=== PATIENT | female | born 1960 | race Caucasian/White ===

== ENCOUNTER 2017-10-23 11:03 | Emergency (ER) | payer OTHER ==
[~2017-10-23] VITALS: Ht 154.9 cm; Wt 64.1 kg
[2017-10-23 11:12] VITALS: TEMP 36.7; Ht 154.9 cm; Wt 64.1 kg
[2017-10-23 12:27] LABS: BASO % 0.2 %; BASO ABS # 0.02 K/uL (0-0.2); EOS % 0.6 %; EOS ABS # 0.05 K/uL (0-0.5); HEMATOCRIT 38.8 % (37-47); HEMOGLOBIN 13.3 g/dL (12.0-16.0); IG# 0.01 K/uL (0.00-0.02); LYMPH % 20.6 %; LYMPH ABS # 1.82 K/uL (1.2-3.4); MEAN CELL VOLUME 85.1 fL (80-100); MEAN CORPUSCULAR HEMOGLOBIN 29.2 pg (25-34); MEAN CORPUSCULAR HGB CONC 34.3 g/dl (32-36); MONO % 8.8 %; MONO ABS # 0.78 K/uL (0.11-0.59); NEUT % 69.7 %; NEUT ABS # 6.17 K/uL (1.4-6.5); PLATELET COUNT 301 K/uL (130-400); RED CELL DISTRIBUTION WIDTH CV 13.4 % (11.5-14.5); RED CELL DISTRIBUTION WIDTH SD 41.1 fL (36.4-46.3); WHITE BLOOD COUNT 8.85 K/uL (4.8-10.8)
[2017-10-23 12:47] LABS: ALBUMIN 3.9 gm/dl (3.4-5.0); CALCIUM 9.7 mg/dl (8.5-10.1); CREATININE 0.7 mg/dl (0.60-1.20); POTASSIUM 3.9 mmol/L (3.5-5.1)
[2017-10-23 12:49] LABS: TOTAL PROTEIN 7.3 gm/dl (6.4-8.2)
[2017-10-23] MEDS ORDERED: FENTANYL CITRATE INJ 50 MCG/1 ML 2 ML VIAL IV STA (13:13)
[2017-10-23] MEDS ORDERED: KETOROLAC TROMETHAMINE 30 MG/ML VIAL IV STA (13:13)
--- NOTE | 2017-10-23 13:37 | DIAGNOSTIC IMAGING REPORT ---
ABD/PELVIS WITHOUT FOR STONE CLINICAL HISTORY: 57 years-old Female presenting with left low back pain, left flank pain, dark-colored urine. TECHNIQUE: Multidetector CT of the abdomen and pelvis was performed without the use of intravenous contrast. IV contrast: None. A dose lowering technique was used consistent with the principles of ALARA (as low as reasonably achievable). COMPARISON: None. CT DOSE (mGy.cm): The estimated cumulative dose is 498.31 mGy.cm. FINDINGS: Racker Octave Board topogram: Unremarkable. Lung bases: Minimal basilar opacities, likely atelectasis. Normal heart size. No pericardial or pleural effusion. Liver: Normal morphology. Multiple well-defined hypodensities in the liver, indeterminate but likely hepatic cysts or hamartomas. Normal liver density. Biliary: No gross biliary ductal dilatation allowing for noncontrast technique. Normal gallbladder. Pancreas: Normal noncontrast appearance. Spleen: Normal noncontrast appearance. Adrenal glands: Normal noncontrast appearance. Kidneys and ureters: Cluster of nonobstructing right renal calculi at the lower pole, the largest measuring 5 mm. Parenchymal calcification potentially associated with a cystic lesion in the left kidney, incompletely characterized. No hydronephrosis. No ureteral calculi. The ureters are nondilated. Bladder: Normal. No bladder calculi. Pelvic organs: Normal noncontrast appearance. Bowel: Mild stool burden throughout the colon. The appendix is normal. No bowel obstruction. Peritoneal cavity: No free fluid or intraperitoneal gas. Lymph nodes: No gross lymphadenopathy allowing for noncontrast technique. Vasculature: Normal noncontrast appearance. Abdominal wall: Small fat-containing umbilical hernia. Musculoskeletal: Normal. IMPRESSION: 1. Cluster of nonobstructing right renal calculi, the largest measuring 5 mm. No hydronephrosis or ureteral calculi. No evidence to suggest a recently passed calculus. 2. No convincing evidence of acute intra-abdominal pathology. Electronically signed by: Rojelio Frank M.D. 10/23/2017 1:36 PM Dictated Date/Time: 10/23/2017 1:30 PM
--- NOTE | 2017-10-23 15:16 | DIAGNOSTIC IMAGING REPORT ---
TRANSVAG-FEMALE PELVIS CLINICAL HISTORY: 57 years-old Female presenting with llq pain, , last menstrual period 3 months ago, no abnormal bleeding or prior surgery, left-sided pelvic pain. TECHNIQUE: Real-time grayscale and color and spectral Doppler ultrasound imaging of the pelvis was performed first using a transabdominal probe and subsequently transvaginal for better characterization. COMPARISON: CT from earlier the same day. FINDINGS: Uterus: Mildly hypoechoic region at the uterine fundus, possibly a small intramural fibroid. Anteverted. The uterus measures 6.3 x 3.9 x 4.8 cm. Endometrial stripe measures 3 mm in thickness. Endometrium normal-appearing. Cervix normal. Right adnexa: Right ovary contains a dominant follicle. Right ovary measures 2.8 x 2.6 x 2.4 cm. Normal color Doppler flow and arterial and venous waveforms within the ovarian parenchyma. Left adnexa: Left ovary normal. Left ovary measures 2.5 x 1.7 x 2.3 cm. Normal color Doppler flow and arterial and venous waveforms within the ovarian parenchyma. Other: No free fluid. IMPRESSION: 1. No significant abnormality identified within the pelvis. No ovarian torsion. Electronically signed by: Rojelio Frank M.D. 10/23/2017 3:15 PM Dictated Date/Time: 10/23/2017 3:12 PM
[2017-10-23 15:35] VITALS: BP 117/87; PULSE 71; O2SAT 97
--- NOTE | 2017-10-23 15:57 | EMERGENCY ROOM VISIT NOTE ---
History Report prepared by Ranjeet: Maki Peoples Under the Supervision of: Sondra HendersonO. First contact with patient: 12:20 Chief Complaint: FLANK PAIN Stated Complaint: PAIN IN LOWER LEFT SIDE TO BACK AREA History of Present Illness The patient is a 57 year old female who presents to the Emergency Room with complaints of worsening left lower side pain beginning at 3 am this morning. The patient reports her pain now radiates to her left sided back. The patient reports her lower back pain worsens when she takes a deep breath. She notes her pain is slightly relieved when she lays flat. She reports she felt normal last night before she went to bed. She reports a history of bladder infection. The patient reports dark urine. She denies any recent activity or recent travel. Pt denies headache, change in vision, fevers, chest pain, shortness of breath, nausea, vomiting, diarrhea, pain with urination, increased urinary urge, and melena. The patient reports a family history of kidney stones. The patient reports a history of a cyst on her breast. Patient states prior remote history of ovarian cyst. No significant family history of other pathology. Patient denies any recent dyspareunia, abnormal bleeding, or abnormal discharge. No history of STDs. No new sexual partner. Source of History: patient Onset: 3 am Position: other (left side) Quality: other (radiates to back) Timing: worsening Modifying Factors (Worsening): breathing Modifying Factors (Relieving): other (laying flat) Associated Symptoms: + back pain, + urinary symptoms, No headache, No chest pain, No SOB, No nausea, No vomiting, No diarrhea Review of Systems See HPI for pertinent positives & negatives. A total of 10 systems reviewed and were otherwise negative. Past Medical & Surgical Medical Problems: (1) Bladder infection Family History Kidney stones Social History Smoking Status: Never Smoker Alcohol Use: occasionally Drug Use: none Marital Status: single Housing Status: lives with family Occupation Status: employed Current/Historical Medications Scheduled Tamsulosin Hcl (Flomax), 0.4 MG PO DAILY Scheduled PRN Oxycodone/Acetaminophen 5MG/325MG (Percocet 5MG/325MG), 1-2 TABS PO Q6 PRN for Pain Allergies Coded Allergies: No Known Allergies (Verified , 10/23/17) Physical Exam Vital Signs Date Time Temp Pulse Resp B/P (MAP) Pulse Ox O2 Delivery O2 Flow Rate FiO2 10/23/17 15:35 71 17 117/87 97 Room Air 10/23/17 13:45 74 17 99 Room Air 10/23/17 12:39 78 19 143/89 100 Room Air 10/23/17 11:12 36.7 74 18 136/84 100 Room Air Physical Exam GENERAL: alert, well appearing, well nourished, no distress, non-toxic EYE EXAM: normal conjunctiva, PERRL and EOM's grossly intact OROPHARYNX: no exudate, no erythema, lips, buccal mucosa, and tongue normal and mucous membranes are moist NECK: supple, no nuchal rigidity, no adenopathy, non-tender LUNGS: Clear to auscultation. Normal chest wall mechanics HEART: no murmurs, S1 normal and S2 normal ABDOMEN: abdomen soft, non-tender, normo-active bowel sounds, no masses, no rebound or guarding. BACK: Reproducible left lower back pain. Back is symmetrical on inspection and there is no deformity, no midline tenderness, no CVA tenderness. SKIN: no rashes and no bruising UPPER EXTREMITIES: upper extremities are grossly normal. LOWER EXTREMITIES: No pitting edema. NEURO EXAM: Normal sensorium, cranial nerves II-XII grossly intact, normal speech, no gross weakness of arms, no gross weakness of legs. Medical Decision & Procedures ER Provider Diagnostic Interpretation: Radiology results have been interpreted by the radiologist and reviewed by me. ABD/PELVIS WITHOUT FOR STONE FINDINGS: Human Service Coordinator topogram: Unremarkable. Lung bases: Minimal basilar opacities, likely atelectasis. Normal heart size. No pericardial or pleural effusion. Liver: Normal morphology. Multiple well-defined hypodensities in the liver, indeterminate but likely hepatic cysts or hamartomas. Normal liver density. Biliary: No gross biliary ductal dilatation allowing for noncontrast technique. Normal gallbladder. Pancreas: Normal noncontrast appearance. Spleen: Normal noncontrast appearance. Adrenal glands: Normal noncontrast appearance. Kidneys and ureters: Cluster of nonobstructing right renal calculi at the lower pole, the largest measuring 5 mm. Parenchymal calcification potentially associated with a cystic lesion in the left kidney, incompletely characterized. No hydronephrosis. No ureteral calculi. The ureters are nondilated. Bladder: Normal. No bladder calculi. Pelvic organs: Normal noncontrast appearance. Bowel: Mild stool burden throughout the colon. The appendix is normal. No bowel obstruction. Peritoneal cavity: No free fluid or intraperitoneal gas. Lymph nodes: No gross lymphadenopathy allowing for noncontrast technique. Vasculature: Normal noncontrast appearance. Abdominal wall: Small fat-containing umbilical hernia. Musculoskeletal: Normal. IMPRESSION: 1. Cluster of nonobstructing right renal calculi, the largest measuring 5 mm. No hydronephrosis or ureteral calculi. No evidence to suggest a recently passed calculus. 2. No convincing evidence of acute intra-abdominal pathology. Electronically signed by: Rojelio Frank M.D. TRANSVAG-FEMALE PELVIS FINDINGS: Uterus: Mildly hypoechoic region at the uterine fundus, possibly a small intramural fibroid. Anteverted. The uterus measures 6.3 x 3.9 x 4.8 cm. Endometrial stripe measures 3 mm in thickness. Endometrium normal-appearing. Cervix normal. Right adnexa: Right ovary contains a dominant follicle. Right ovary measures 2.8 x 2.6 x 2.4 cm. Normal color Doppler flow and arterial and venous waveforms within the ovarian parenchyma. Left adnexa: Left ovary normal. Left ovary measures 2.5 x 1.7 x 2.3 cm. Normal color Doppler flow and arterial and venous waveforms within the ovarian parenchyma. Other: No free fluid. IMPRESSION: 1. No significant abnormality identified within the pelvis. No ovarian torsion. Electronically signed by: Rojelio Frank M.D. Laboratory Results 10/23/17 12:05 Red Blood Count 4.56, Mean Corpuscular Volume 85.1, Mean Corpuscular Hemoglobin 29.2, Mean Corpuscular Hemoglobin Concent 34.3, Mean Platelet Volume 9.0, Neutrophils (%) (Auto) 69.7, Lymphocytes (%) (Auto) 20.6, Monocytes (%) (Auto) 8.8, Eosinophils (%) (Auto) 0.6, Basophils (%) (Auto) 0.2, Neutrophils # (Auto) 6.17, Lymphocytes # (Auto) 1.82, Monocytes # (Auto) 0.78, Eosinophils # (Auto) 0.05, Basophils # (Auto) 0.02 10/23/17 12:05 Test 10/23/17 11:45 10/23/17 12:05 Urine Color YELLOW Urine Appearance CLEAR (CLEAR) Urine pH 7.0 (4.5-7.5) Urine Specific Cougar 1.020 (1.000-1.030) Urine Protein NEG (NEG) Urine Glucose (UA) NEG (NEG) Urine Ketones NEG (NEG) Urine Occult Blood 3+ (NEG) Urine Nitrite NEG (NEG) Urine Bilirubin NEG (NEG) Urine Urobilinogen NEG (NEG) Urine Leukocyte Esterase TRACE (NEG) Urine WBC (Auto) 1-5 /hpf (0-5) Urine RBC (Auto) >30 /hpf (0-4) Urine Hyaline Casts (Auto) 1-5 /lpf (0-5) Urine Epithelial Cells (Auto) >30 /lpf (0-5) Urine Bacteria (Auto) 1+ (NEG) White Blood Count 8.85 K/uL (4.8-10.8) Red Blood Count 4.56 M/uL (4.2-5.4) Hemoglobin 13.3 g/dL (12.0-16.0) Hematocrit 38.8 % (37-47) Mean Corpuscular Volume 85.1 fL (80-100) Mean Corpuscular Hemoglobin 29.2 pg (25-34) Mean Corpuscular Hemoglobin Concent 34.3 g/dl (32-36) Platelet Count 301 K/uL (130-400) Mean Platelet Volume 9.0 fL (7.4-10.4) Neutrophils (%) (Auto) 69.7 % Lymphocytes (%) (Auto) 20.6 % Monocytes (%) (Auto) 8.8 % Eosinophils (%) (Auto) 0.6 % Basophils (%) (Auto) 0.2 % Neutrophils # (Auto) 6.17 K/uL (1.4-6.5) Lymphocytes # (Auto) 1.82 K/uL (1.2-3.4) Monocytes # (Auto) 0.78 K/uL (0.11-0.59) Eosinophils # (Auto) 0.05 K/uL (0-0.5) Basophils # (Auto) 0.02 K/uL (0-0.2) RDW Standard Deviation 41.1 fL (36.4-46.3) RDW Coefficient of Variation 13.4 % (11.5-14.5) Immature Granulocyte % (Auto) 0.1 % Immature Granulocyte # (Auto) 0.01 K/uL (0.00-0.02) Anion Gap 4.0 mmol/L (3-11) Est Creatinine Clear Calc Drug Dose 76.9 ml/min Estimated GFR () 112.3 Estimated GFR (Non- 96.9 BUN/Creatinine Ratio 19.3 (10-20) Calcium Level 9.7 mg/dl (8.5-10.1) Total Bilirubin 0.5 mg/dl (0.2-1) Aspartate Amino Transf (AST/SGOT) 12 U/L (15-37) Alanine Aminotransferase (ALT/SGPT) 23 U/L (12-78) Alkaline Phosphatase 65 U/L (45-117) Total Protein 7.3 gm/dl (6.4-8.2) Albumin 3.9 gm/dl (3.4-5.0) Globulin 3.4 gm/dl (2.5-4.0) Albumin/Globulin Ratio 1.1 (0.9-2) Lipase 104 U/L (73-393) Human Chorionic Gonadotropin, Qual NEG (NEG) Date/Time Source Procedure Growth Status 10/23/17 11:45 Urine , Clean Catch Urine Culture - Final MORE THAN THREE TYPES OF ORGANISMS GA... Complete Laboratory results per my review. Medications Administered Medications (Trade) Dose Ordered Sig/Montez Route Start Time Stop Time Status Last Admin Dose Admin Fentanyl Citrate (Fentanyl Inj) 50 mcg NOW STAT IV 10/23/17 13:13 10/23/17 13:14 DC 10/23/17 13:35 50 MCG Ketorolac Tromethamine (Toradol Inj) 30 mg NOW STAT IV 10/23/17 13:13 10/23/17 13:14 DC 10/23/17 13:34 30 MG ED Course 1227: The patient was evaluated in room C8. A complete history and physical exam was performed. 1313: Ordered Toradol Inj 30 mg IV, Fentanyl Inj 50 mcg IV. 1356: I updated the patient on her test results. She reports relief of her pain. 1540: The patient is resting comfortably. 1600: Upon reevaluation, the patient is feeling better. I discussed the findings and the treatment plan with the patient. She verbalizes agreement and understanding. The patient was discharged home. Medical Decision Differential diagnosis: Etiologies such as renal colic, appendicitis, diverticulitis, mesenteric ischemia, aortic pathology, infections, inflammatory bowel disease, PUD, biliary pathology, UTI, as well as others were entertained. Patient most likely with renal colic as nephrolithiasis noted on imaging and hematuria found also. No discrete ureterolithiasis noted on patient's CT. No evidence of renal dysfunction, no evidence of UTI. I do not suspect infected stone. No evidence of bacteremia/sepsis. No other acute GI or vascular pathology noted. Patient with prior history of ovarian cysts, however pelvic ultrasound unremarkable. I do not suspect torsion, TOA, PID. Patient well- appearing here, improved after pain medication. No vomiting, afebrile. Patient hemodynamically stable throughout. Discussed with patient symptoms to watch and return for, straining urine, hydration, possible need for urology follow-up if symptoms persist, follow-up with PCP in the interim, she verbalized understanding was agreeable with plan. Patient cautioned on use of stronger pain medication including common side effects such as constipation as well as avoidance of driving while taking them. Patient discharged in good condition and well-appearing at time of discharge. Boyfriend driving the patient home. Medication Reconcilliation Current Medication List: was personally reviewed by me Blood Pressure Screening Patient's blood pressure: Normal blood pressure Impression Primary Impression: Left flank pain Additional Impression: Hematuria Scribe Attestation The scribe's documentation has been prepared under my direction and personally reviewed by me in its entirety. I confirm that the note above accurately reflects all work, treatment, procedures, and medical decision making performed by me. Departure Information Dispostion Home / Self-Care Prescriptions Oxycodone/Acetaminophen 5MG/325MG (PERCOCET 5MG/325MG) Tab 1-2 TABS PO Q6 Y for Pain, #10 TAB Prov: Vianey Torres, DO 10/23/17 Tamsulosin Hcl (FLOMAX) 0.4 Mg Cap 0.4 MG PO DAILY, #10 CAP Prov: Vianey Torres, DO 10/23/17 Referrals No Doctor, Assigned (PCP) Forms HOME CARE DOCUMENTATION FORM, IMPORTANT VISIT INFORMATION Patient Instructions ED Stone Renal W Colic, My [facility] Additional Instructions Please call and follow-up with your family doctor. Please use the strainer. Take the flomax daily until you pass the stone. Please drink plenty of water. He may use the other pain medication as needed, do not take it and drive, and please be aware that it may cause constipation. You may eat regularly. There are no other activity restrictions. If you have any worsening pain, are unable to urinate, develop vomiting, fevers, or you have any other new concerns, please return the emergency room. Problem Qualifiers Additional Impression: Hematuria Hematuria type: unspecified type Qualified Codes: R31.9 - Hematuria, unspecified
[2017-10-23] MEDS ORDERED: OXYC-57 PO (16:01)
[2017-10-23] MEDS ORDERED: TAMS0.4C38 PO (16:01)
== END 2017-10-23 16:25 | disposition home or self-care (01) ==
LOC: C.EDB 11:05 → C.EDC 16:25
DX: N20.0 Calculus of kidney (principal); Z87.442 Personal history of urinary calculi